=== PATIENT | female | born 2000 | race Caucasian/White ===

== ENCOUNTER → 2019-07-03 21:45 | Observation (INO) ==
[~2019-07-03 21:45] MED LIST: Acetaminophen/Butalbital/CaffeineTABLET PO ONE
[2019-07-03 22:11] LABS: Basophils % 0.2 %; Eosinophils # 0.1 K/mcL (0.0-0.6); Eosinophils % 0.7 %; Hematocrit 31.1 % (35.3-44.9); Hemoglobin 10.9 g/dL (11.5-15.4); Immature Granulocytes % 1.2 % (0-4); Lymphocytes % 17.8 %; Mean Corpuscular Hemoglobin 28.9 pg (28.0-33.3); Mean Corpuscular Volume 82.5 fL (83.0-100.0); Mean Platelet Volume 9.3 fL (9.4-12.4); Monocytes # 0.7 K/mcL (0.0-1.3); Monocytes % 4.2 %; Neutrophils # 12.8 K/mcL (1.6-8.9); Platelet Count 303 K/mcL (140-400); Red Blood Count 3.77 M/mcL (3.82-4.97); Red Cell Distribution Width 13.7 % (11.5-14.5); Segmented Neutrophils % 75.9 %; White Blood Count 16.8 K/mcL (4.3-11.1)
[2019-07-03 22:20] LABS: Amphetamine Screen,Urine Negative ng/mL (Cutoff=1000); Barbiturate Screen,Urine Negative ng/mL (Cutoff=200); Benzodiazepines Screen,Urine Negative ng/mL (Cutoff=200); Cannabinoid Screen,Urine Negative ng/mL (Cutoff = 50); Cocaine Screen,Urine Negative ng/mL (Cutoff= 300); Creatinine,Urine 164 mg/dL; Opiate Screen,Urine Negative ng/mL (Cutoff=300); Phencyclidine Screen,Urine Negative ng/mL (Cutoff=25); Protein/Creatinine Ratio,Urine 0.25 mg/mg (0.00-0.20)
[2019-07-03 22:30] LABS: Alanine Aminotransferase 16 Units/L (7-52); Aspartate Amino Transferase 12 Units/L (13-39); BUN/Creatinine Ratio 13 (6-26); Blood Urea Nitrogen 7 mg/dL (6-20); Lactate Dehydrogenase 132 Units/L (140-271); Uric Acid 3.3 mg/dL (2.3-7.6); eGFR For African Americans > 60 (> 60); eGFR For Non-African Americans > 60 (> 60)
== END | disposition home or self-care (01) ==
LOC: 1NENULAB
PROVIDERS: ADMIT Advanced Practice Midwife; ATTEND Advanced Practice Midwife

== ENCOUNTER → 2019-07-17 18:05 | Observation (INO) ==
[2019-07-17 17:25] LABS: Bilirubin,Urine Negative (Negative); Blood,Urine Negative (Negative); Clarity,Urine Clear (Clear); Color,Urine Yellow (Yellow); Glucose,Urine (UA) Normal (Normal); Ketones,Urine Negative (Negative); Leukocyte Esterase,Urine Negative (Negative); Nitrite,Urine Negative (Negative); Protein,Urine 30 mg/dL (Neg-Trace); Specific Gravity,Urine 1.026 (1.010-1.025); Urobilinogen,Urine Normal (Normal)
[2019-07-17 17:28] LABS: Bacteria,Urine None Seen per hpf (None-Few); Hyaline Casts,Urine None Seen per lpf (None-Few); Squamous Epithelial Cell,Urine Many per lpf (None-Few)
[2019-07-17 17:34] LABS: Amphetamine Screen,Urine Negative ng/mL (Cutoff=1000); Barbiturate Screen,Urine Negative ng/mL (Cutoff=200); Benzodiazepines Screen,Urine Negative ng/mL (Cutoff=200); Cannabinoid Screen,Urine Negative ng/mL (Cutoff = 50); Cocaine Screen,Urine Negative ng/mL (Cutoff= 300); Opiate Screen,Urine Negative ng/mL (Cutoff=300); Phencyclidine Screen,Urine Negative ng/mL (Cutoff=25)
== END | disposition home or self-care (01) ==
LOC: 1NENULAB
PROVIDERS: ADMIT Advanced Practice Midwife; ATTEND Advanced Practice Midwife

== ENCOUNTER 2019-10-04 11:42 | Inpatient (IN) ==
[2019-10-04] MEDS ORDERED: Naloxone 0.4 MG/ML INJ IVP PRN (11:48)
[2019-10-04] MEDS ORDERED: Famotidine 20 MG/2 ML VIAL IVP PRN (11:48)
[2019-10-04] MEDS ORDERED: Metoclopramide 10 MG/2 ML VIAL IVP PRN (11:48)
[2019-10-04] MEDS ORDERED: Penicillin G Potassium 5,000,000 UNIT in 0.9 % Sodium Chloride Mini Bag 100 ML IVPB ONE (12:34)
[2019-10-04 12:44] LABS: Hematocrit 35.3 % (35.3-44.9); Hemoglobin 11.3 g/dL (11.5-15.4); Immature Granulocytes % 0.6 % (0-4); Lymphocytes % 18.4 %; Mean Corpuscular Hemoglobin 26.6 pg (28.0-33.3); Mean Corpuscular Volume 83.1 fL (83.0-100.0); Mean Platelet Volume 9.8 fL (9.4-12.4); Monocytes % 7.1 %; Platelet Count 319 K/mcL (140-400); Red Blood Count 4.25 M/mcL (3.82-4.97); White Blood Count 11.8 K/mcL (4.3-11.1)
[2019-10-04 12:45] LABS: Basophils % 0.3 %; Eosinophils # 0.1 K/mcL (0.0-0.6); Eosinophils % 0.6 %; Lymphocytes # 2.2 K/mcL (0.6-4.6); Monocytes # 0.8 K/mcL (0.0-1.3); Neutrophils # 8.6 K/mcL (1.6-8.9)
[2019-10-04 12:52] LABS: Amphetamine Screen,Urine Negative ng/mL (Cutoff=1000); Barbiturate Screen,Urine Negative ng/mL (Cutoff=200); Benzodiazepines Screen,Urine Negative ng/mL (Cutoff=200); Cannabinoid Screen,Urine Negative ng/mL (Cutoff = 50); Cocaine Screen,Urine Negative ng/mL (Cutoff= 300); Opiate Screen,Urine Negative ng/mL (Cutoff=300); Phencyclidine Screen,Urine Negative ng/mL (Cutoff=25)
[2019-10-04] MEDS: Ringers Solution, Lactated 1,000 ML IVC SCH (13:20)
[2019-10-04] MEDS: miSOPROStoL 25 MCG TABLET VG PRN ×2 (14:00→18:35)
[2019-10-04 15:03] LABS: Protein/Creatinine Ratio,Urine 0.32 mg/mg (0.00-0.20)
[2019-10-04] MEDS: Penicillin G Potassium 2,500,000 UNIT in 0.9 % Sodium Chloride 100 ML IVPB SCH ×2 (17:30→21:36)
[2019-10-04 20:53] LABS: Bilirubin,Urine Negative (Negative); Blood,Urine Negative (Negative); Clarity,Urine Clear (Clear); Color,Urine Yellow (Yellow); Glucose,Urine (UA) Normal (Normal); Ketones,Urine Negative (Negative); Leukocyte Esterase,Urine Negative (Negative); Nitrite,Urine Negative (Negative); Protein,Urine Negative (Neg-Trace); Specific Gravity,Urine 1.018 (1.010-1.025); Urobilinogen,Urine Normal (Normal)
[2019-10-04 20:58] LABS: Alanine Aminotransferase 14 Units/L (7-52); Aspartate Amino Transferase 13 Units/L (13-39); BUN/Creatinine Ratio 8 (6-26); Blood Urea Nitrogen 4 mg/dL (6-20); Lactate Dehydrogenase 118 Units/L (140-271); Uric Acid 3.5 mg/dL (2.3-7.6); eGFR For African Americans > 60 (> 60); eGFR For Non-African Americans > 60 (> 60)
[2019-10-04] MEDS ORDERED: Oxytocin 20 units/ LR 1000 mL 20 UNIT/1,000 ML BAG IVC SCH (22:30)
[2019-10-05] MEDS: *HR* FentaNYL (PF) 100 MCG/2 ML VIAL IVP PRN ×2 (00:13→06:28)
[2019-10-05] MEDS: Penicillin G Potassium 2,500,000 UNIT in 0.9 % Sodium Chloride 100 ML IVPB SCH ×3 (02:01→15:05)
[2019-10-05] MEDS ORDERED: Ropivacaine/PF 0.2% 20 ML VIAL EP ONE (07:28)
[2019-10-05] MEDS ORDERED: *HR* FentaNYL (PF) 100 MCG/2 ML VIAL EP ONE (07:28)
[2019-10-05] MEDS ORDERED: EPHEDrine 50 MG/ML VIAL IVP PRN (07:28)
[2019-10-05] MEDS ORDERED: Bupivacaine-MPF 0.25% 10 ML VIAL EP ONE (07:28)
[2019-10-05] MEDS ORDERED: Ondansetron 4 MG/2 ML VIAL IVP PRN (07:28)
[2019-10-05] MEDS ORDERED: Naloxone 0.4 MG/ML INJ IVP PRN (07:28)
[2019-10-05] MEDS ORDERED: *HR* FentaNYL (PF) 100 MCG/2 ML VIAL ONE (07:34)
[2019-10-05] MEDS ORDERED: Ropivacaine/PF 0.2% 20 ML VIAL ONE ×2 (07:34→17:20)
[2019-10-05] MEDS: Ringers Solution, Lactated 1,000 ML IVC SCH ×2 (08:06→13:45)
[2019-10-05] MEDS: Epidural Premix (fent/bupiv) 110 ML EP SCH ×2 (08:07→13:44)
[2019-10-05] MEDS: Ondansetron 4 MG/2 ML VIAL IVP PRN ×2 (08:47→19:28)
[2019-10-05] MEDS ORDERED: Acetaminophen 325 MG TABLET PO ONE (12:24)
[2019-10-05] MEDS ORDERED: Benzocaine/Menthol 56 GM AEROSOL SPRAY TP PRN (22:47)
[2019-10-05] MEDS ORDERED: Oxytocin 20 units/ LR 1000 mL 20 UNIT/1,000 ML BAG IVC SCH (22:47)
[2019-10-05] MEDS ORDERED: Lanolin 7 G OINT...G. TP PRN (22:47)
[2019-10-05] MEDS: Ibuprofen 600 MG TABLET PO PRN (23:21)
[2019-10-06] MEDS: Acetaminophen 325 MG TABLET PO PRN ×3 (07:46→17:34)
[2019-10-06] MEDS: Ibuprofen 600 MG TABLET PO PRN ×3 (07:46→17:33)
[2019-10-06] MEDS: Prenatal Vit/FA 1 EACH TABLET PO SCH (07:47)
[2019-10-07] MEDS: Acetaminophen 325 MG TABLET PO PRN ×2 (00:18→06:51)
[2019-10-07] MEDS: Ibuprofen 600 MG TABLET PO PRN ×2 (00:18→06:51)
[2019-10-07 06:07] LABS: Basophils % 0.4 %; Eosinophils # 0.1 K/mcL (0.0-0.6); Eosinophils % 1.2 %; Hematocrit 30.4 % (35.3-44.9); Immature Granulocytes % 0.9 % (0-4); Lymphocytes # 2.4 K/mcL (0.6-4.6); Lymphocytes % 22.3 %; Mean Corpuscular HGB Conc 30.9 g/dL (31.6-35.5); Mean Corpuscular Hemoglobin 26.5 pg (28.0-33.3); Mean Corpuscular Volume 85.6 fL (83.0-100.0); Mean Platelet Volume 9.6 fL (9.4-12.4); Monocytes # 0.8 K/mcL (0.0-1.3); Neutrophils # 7.5 K/mcL (1.6-8.9); Platelet Count 258 K/mcL (140-400); Red Blood Count 3.55 M/mcL (3.82-4.97); Red Cell Distribution Width 15.4 % (11.5-14.5); Segmented Neutrophils % 68.2 %; White Blood Count 10.9 K/mcL (4.3-11.1)
[2019-10-07 06:09] LABS: Hemoglobin 9.4 g/dL (11.5-15.4)
[2019-10-07 06:23] LABS: Alanine Aminotransferase 13 Units/L (7-52); Aspartate Amino Transferase 14 Units/L (13-39); BUN/Creatinine Ratio 9 (6-26); Blood Urea Nitrogen 8 mg/dL (6-20); Lactate Dehydrogenase 137 Units/L (140-271); Uric Acid 4.1 mg/dL (2.3-7.6); eGFR For African Americans > 60 (> 60); eGFR For Non-African Americans > 60 (> 60)
[2019-10-07 07:40] VITALS: BP 119/76
[2019-10-07] MEDS: Prenatal Vit/FA 1 EACH TABLET PO SCH (08:38)
== END 2019-10-07 11:59 | disposition home or self-care (01) | DRG 806 ==
LOC: 1NENULAB 11:42 → 1NENUOBS 10-05 17:58 → 1NENULAB 10-05 18:31 → 1NENUOBS 10-05 22:40
PROVIDERS: ADMIT Advanced Practice Midwife; ATTEND Advanced Practice Midwife

== ENCOUNTER 2022-03-04 23:49 | Inpatient (IN) ==
[2022-03-05] MEDS ORDERED: Naloxone 0.4 MG/ML INJ IVP PRN (00:49)
[2022-03-05] MEDS ORDERED: Famotidine 20 MG/2 ML VIAL IVP PRN (00:49)
[2022-03-05] MEDS ORDERED: Azithromycin 500 MG in 0.9 % Sodium Chloride 250 ML IVPB PRN (00:49)
[2022-03-05] MEDS ORDERED: Metoclopramide 10 MG/2 ML VIAL IVP PRN (00:49)
[2022-03-05] MEDS ORDERED: Ondansetron 4 MG/2 ML VIAL IVP PRN (00:49)
[2022-03-05 01:16] LABS: Basophils % 0.3 %; Eosinophils # 0.1 K/mcL (0.0-0.6); Eosinophils % 0.5 %; Hemoglobin 11.8 g/dL (11.5-15.4); Immature Granulocytes % 0.7 % (0-4); Lymphocytes # 2.7 K/mcL (0.6-4.6); Lymphocytes % 19.2 %; Mean Corpuscular HGB Conc 33.7 g/dL (31.6-35.5); Mean Corpuscular Hemoglobin 29.6 pg (28.0-33.3); Mean Corpuscular Volume 87.9 fL (83.0-100.0); Mean Platelet Volume 9.9 fL (9.4-12.4); Monocytes % 7.1 %; Neutrophils # 10.1 K/mcL (1.6-8.9); Platelet Count 266 K/mcL (140-400); Red Blood Count 3.98 M/mcL (3.82-4.97); Red Cell Distribution Width 13.7 % (11.5-14.5); Segmented Neutrophils % 72.2 %
[2022-03-05 01:27] LABS: Amphetamine Screen,Urine Negative ng/mL (Cutoff=1000); Barbiturate Screen,Urine Negative ng/mL (Cutoff=200); Benzodiazepines Screen,Urine Negative ng/mL (Cutoff=200); Cannabinoid Screen,Urine Negative ng/mL (Cutoff = 50); Cocaine Screen,Urine Negative ng/mL (Cutoff= 300); Opiate Screen,Urine Negative ng/mL (Cutoff=300); Phencyclidine Screen,Urine Negative ng/mL (Cutoff=25)
[2022-03-05] MEDS: miSOPROStoL 25 MCG TABLET PO PRN ×2 (01:27→05:24)
[2022-03-05] MEDS: Ringers Solution, Lactated 1,000 ML IVC SCH ×2 (01:28→20:19)
[2022-03-05] MEDS: *HR* Nalbuphine 10 MG/ML AMPUL IV PRN ×2 (05:23→12:36)
[2022-03-05] MEDS ORDERED: EPHEDrine 50 MG/ML VIAL IVP PRN (06:23)
[2022-03-05] MEDS ORDERED: Epidural Premix (fent/bupiv) 110 ML EP SCH (06:30)
[2022-03-05] MEDS ORDERED: Oxytocin 30 UNIT/503 ML BAG IVC SCH (10:00)
[2022-03-05] MEDS ORDERED: Ropivacaine/PF 0.2% 20 ML VIAL ONE (20:44)
[2022-03-06] MEDS ORDERED: Lanolin 7 G OINT...G. TP PRN (00:41)
[2022-03-06] MEDS ORDERED: Ondansetron ODT 4 MG TAB.RAPDIS SL PRN (00:41)
[2022-03-06] MEDS ORDERED: Benzocaine/Menthol 56 GM AEROSOL SPRAY TP PRN (00:41)
[2022-03-06] MEDS ORDERED: Rho Immune Globulin 1,500 UNIT SYRINGE IM PRN (00:41)
[2022-03-06] MEDS ORDERED: Oxytocin 30 UNIT/503 ML BAG IVC SCH (00:41)
[2022-03-06] MEDS ORDERED: Measles/Mumps/Rubella Vacc 0.5 ML VIAL SQ PRN (00:41)
[2022-03-06] MEDS: Acetaminophen 325 MG TABLET PO SCH ×3 (01:02→14:46)
[2022-03-06] MEDS: Ibuprofen 600 MG TABLET PO SCH ×3 (01:02→14:46)
[2022-03-06] MEDS ORDERED: Prenatal Vit/FA 1 EACH TABLET PO SCH (09:00)
[2022-03-06 12:07] LABS: Basophils % 0.3 %; Eosinophils # 0.1 K/mcL (0.0-0.6); Eosinophils % 0.6 %; Hematocrit 37.5 % (35.3-44.9); Hemoglobin 12.3 g/dL (11.5-15.4); Immature Granulocytes % 0.6 % (0-4); Lymphocytes # 2.1 K/mcL (0.6-4.6); Lymphocytes % 16.9 %; Mean Corpuscular HGB Conc 32.8 g/dL (31.6-35.5); Mean Corpuscular Hemoglobin 29.2 pg (28.0-33.3); Mean Corpuscular Volume 89.1 fL (83.0-100.0); Mean Platelet Volume 9.6 fL (9.4-12.4); Monocytes # 0.8 K/mcL (0.0-1.3); Monocytes % 6.5 %; Neutrophils # 9.3 K/mcL (1.6-8.9); Platelet Count 237 K/mcL (140-400); Red Blood Count 4.21 M/mcL (3.82-4.97); Red Cell Distribution Width 13.8 % (11.5-14.5); Segmented Neutrophils % 75.1 %; White Blood Count 12.4 K/mcL (4.3-11.1)
[2022-03-06 14:04] LABS: Bilirubin,Urine Negative (Negative); Blood,Urine Small (Negative); Clarity,Urine Clear (Clear); Color,Urine Light-Yellow (Yellow); Glucose,Urine (UA) 200 mg/dL (Normal); Ketones,Urine Negative (Negative); Leukocyte Esterase,Urine Moderate (Negative); Mucus,Urine Few per lpf (None-Few); Nitrite,Urine Negative (Negative); PH,Urine 6.5 pH Units (5.0-8.0); Protein,Urine Trace mg/dL (Neg-Trace); RBC,Urine 50-100 per hpf (0-3); Specific Gravity,Urine 1.013 (1.010-1.025); Squamous Epithelial Cell,Urine Few per hpf (None-Few); Urobilinogen,Urine Normal (Normal)
[2022-03-06 16:49] VITALS: O2SAT 98
[2022-03-06 19:44] VITALS: BP 140/87; PULSE 109; TEMP 98.5
== END 2022-03-07 01:12 | disposition home or self-care (01) | DRG 806 ==
LOC: 1NENULAB 23:49 → 1NENUOBS 03-06 00:01
PROVIDERS: ADMIT Obstetrics & Gynecology; ATTEND Obstetrics & Gynecology